=== PATIENT | female | born 1955 | race Caucasian/White ===

== ENCOUNTER → 2024-08-07 15:09 | Outpatient (REF) | payer MEDICARE, OTHER, SELFPAY | LOC: HWRAD 15:09 | PROVIDERS: ATTENDING PHYSICIAN Family Medicine | DX: R10.84 Generalized abdominal pain (principal) | CPT/HCPCS: 76700 ==

== ENCOUNTER → 2025-04-05 07:38 | Outpatient (REF) | payer MEDICARE, OTHER, SELFPAY ==
[2025-04-05 08:55] LABS: Hematocrit 39.4 % (37.0-47.0); Hemoglobin 12.9 g/dL (12.0-16.0); Mean Corp Hgb Conc. 32.7 g/dL (33.0-37.0); Mean Corpuscular Volume 94.5 fL (81.0-99.0); Platelet Count 305 10^3/uL (130-400); Red Cell Dist. Width 12.9 % (11.5-14.5)
[2025-04-05 09:25] LABS: Blood Urea Nitrogen 19 mg/dl (7-17); Calcium 9.6 mg/dl (8.4-10.2); Carbon Dioxide 25 mmol/L (22-30); Chloride 105 mmol/L (98-107); Glucose 92 mg/dl (70-99); Potassium 4.4 mmol/L (3.5-5.1); Sodium 138 mmol/L (135-145); eGFR > 60.00
== END ==
LOC: SDSPAT 07:38
PROVIDERS: ATTENDING PHYSICIAN Surgery; FAMILY PHYSICIAN Family Medicine
DX: Z01.818 Encounter for other preprocedural examination (principal)
CPT/HCPCS: 80048; 85027; 93005

== ENCOUNTER 2025-04-16 06:18 | Day surgery (SDC) | payer MEDICARE, OTHER, SELFPAY ==
[2025-04-05 12:53] VITALS: BMI 24.9
[2025-04-16] VITALS (7 sets, daily range): BP systolic 130–165; BP diastolic 78–96; BMI 24.9
[2025-04-16] MEDS: TYLENOL 1000 MG PO (10:12)
[2025-04-16] MEDS: NORMOSOL-R/PLASMALYTE-A 1000 IV (10:24)
== END 2025-04-16 15:26 | disposition home or self-care (01) ==
LOC: SDS 06:18
PROVIDERS: ATTENDING PHYSICIAN Surgery; FAMILY PHYSICIAN Family Medicine
DX: D17.1 Benign lipomatous neoplasm of skin and subcutaneous tissue of trunk (principal)
CPT/HCPCS: 21552; 88304